=== PATIENT | male | born 1985 | race Caucasian/White ===

== ENCOUNTER 2022-09-06 15:43 | Emergency (ER) | payer SELFPAY ==
[~2022-09-06] VITALS: Ht 165.1 cm; Wt 72.7 kg
[2022-09-06 17:35] VITALS: BP 130/68
== END 2022-09-06 17:48 ==
LOC: EMS 15:46
DX: R07.9 Chest pain, unspecified (principal); F10.129 Alcohol abuse with intoxication, unspecified; V98.8XXA Other specified transport accidents, initial encounter; Y93.89 Activity, other specified; Y92.89 Other specified places as the place of occurrence of the external cause; Y99.8 Other external cause status
CPT/HCPCS: 71045; 93005; 99283